=== PATIENT | male | born 1960 | race Caucasian/White ===

== ENCOUNTER → 2022-09-14 10:55 | Outpatient (CLI) | payer OTHER, SELFPAY ==
--- NOTE | ~2022-09-14 | MR_ITS ---
EXAMINATION: MR knee LT wo con DATE: 09/14/2022 11:50 INDICATION: Knee pain, weakness, and instability TECHNIQUE: Magnetic resonance imaging (MRI) of the left knee was performed without intravenous contra st. Sequences included axial PD-weighted FS FSE, coronal PD-weighted FSE and PD-weighted FS FSE, sagi ttal PD-weighted FSE, and sagittal T2-weighted FS FSE. COMPARISON: None. FINDINGS: Medial compartment: Complex tear of the body of the medial meniscus. Radial tear of the posterior horn with extensive deg enerative signal change/fraying. There is medial meniscal extrusion with displacement of meniscal tis memo superiorly in the medial joint recess. Moderate diffuse cartilage thinning. Moderate osteophytosi s. Lateral compartment: Tiny apical tear of the lateral meniscus. Moderate diffuse cartilage thinning. Patellofemoral compartment: Full-thickness cartilage loss along the medial facet with mild osteophytosis. Retinacula are intact. Ligaments and tendons: Abnormal signal superficial and deep to mildly thickened MCL. Abnormal signal at the origin of the AC L. The PCL and LCL are intact. The remaining flexor and extensor tendons are intact. Fluid: Moderate volume joint fluid collection. Large Rea's cyst. Osseous/other: Subchondral sclerosis over the MFC, where there is mild cortical depression of approximately 3 mm, an d multiple low signal linear abnormalities in the subchondral bone, with extensive surrounding marrow edema. Mild marrow edema in the medial aspect of the medial tibial plateau. IMPRESSION: 1. Subchondral fractures with cortical depression of several millimeters in the medial femoral condyl e and extensive surrounding marrow edema. 2. Complex tear of the body of the medial meniscus, with medial extrusion and displacement of menisca l tissue superiorly in the medial joint recess. 3. Partial ACL tear. 4. Partial MCL tear. 5. Moderate left knee joint effusion. Reviewed, dictated and finalized at location [facility] IMPRESSION: 1. Subchondral fractures with cortical depression of several millimeters in the medial femoral condyle and extensive surrounding marrow edema. 2. Complex tear of the body of the medial meniscus, with medial extrusion and d isplacement of meniscal tissue superiorly in the medial joint recess. 3. Partial ACL tear. 4. Partial MCL tear. 5. Moderate left knee joint effusion.
== END ==
PROVIDERS: Visit Provider Orthopaedic Surgery
DX: S72.432A Displaced fracture of medial condyle of left femur, initial encounter for closed fracture (principal); S83.242A Other tear of medial meniscus, current injury, left knee, initial encounter; S83.511A Sprain of anterior cruciate ligament of right knee, initial encounter; S83.412A Sprain of medial collateral ligament of left knee, initial encounter; M25.462 Effusion, left knee; X58.XXXA Exposure to other specified factors, initial encounter
CPT/HCPCS: 73721